=== PATIENT | male | born 1985 | race Caucasian/White ===

== ENCOUNTER 2018-12-20 21:16 | Emergency (ER) | payer OTHER ==
[~2018-12-20] VITALS: Ht 180.3 cm; Wt 81.4 kg
[2018-12-20 21:26] VITALS: BP 134/69; PULSE 80; TEMP 97.8
== END 2018-12-20 22:17 | disposition left against medical advice (07) ==
LOC: COL.ER 21:16
DX: R21 Rash and other nonspecific skin eruption (principal)

== ENCOUNTER → 2019-04-09 | Outpatient (CLI) | payer OTHER | LOC: COL.RAD 09:25 | DX: M51.26 Other intervertebral disc displacement, lumbar region (principal); M48.061 Spinal stenosis, lumbar region without neurogenic claudication ==

== ENCOUNTER 2023-07-06 00:15 | Emergency (ER) | payer OTHER ==
[~2023-07-06] VITALS: Ht 180.3 cm; Wt 89.5 kg
[~2023-07-06 00:15] MED LIST: ZOFRAN ODT4 MG PO
[2023-07-06 00:19] VITALS: TEMP 97.9
[2023-07-06] MEDS ORDERED: Cyclobenzaprine 10 MG TAB PO ONE (00:30)
[2023-07-06] MEDS ORDERED: Ketorolac 30 MG/ML VIAL IM ONE (00:30)
[2023-07-06] MEDS ORDERED: FLEXERIL 1010 MG/TAB PO (01:26)
[2023-07-06 01:39] VITALS: BP 148/90; PULSE 98
== END 2023-07-06 01:38 | disposition home or self-care (01) ==
LOC: COL.ER 00:15
DX: M54.50 Low back pain, unspecified (principal)
CPT/HCPCS: J1885